=== PATIENT | female | born 1995 | race Two or more races ===

== ENCOUNTER 2018-08-02 14:58 | Emergency (ER) | payer OTHER ==
[~2018-08-02] VITALS: Ht 157.5 cm; Wt 64.0 kg
[2018-08-02 15:44] LABS: BILIRUBIN,URINE NEGATIVE (NEG); CLARITY,URINE CLEAR; COLOR,URINE YELLOW; NITRITE,URINE NEGATIVE (NEG); PROTEIN,URINE NEGATIVE (NEG-TRACE)
[2018-08-02] MEDS ORDERED: ACETAMINOPHEN 325 MG TABLET. PO ONE (15:45)
[2018-08-02 15:49] LABS: BACTERIA,URINE FEW /HPF (0-FEW); RBC,URINE 0 /HPF (0-2); SQUAMOUS EPITHELIAL CELL,UR MOD /LPF
--- NOTE | 2018-08-02 16:03 | PHYS DOC ---
Adult General Chief Complaint Chief Complaint: BACK PAIN OR INJURY HPI HPI 22-year-old female presents to ER with complaints of lower back pain radiating into her right buttock x2 days. Patient denies falls or recent injury. Patient reports she is 1 para 0 with due date 01/22/19. LMP was late March she is uncertain of exact dates. Patient denies any abdominal pain or cramping, vomiting, urinary symptoms, or vaginal bleeding/discharge. Patient reports since becoming she's had intermittent nausea and her OB provided her with Zofran ODT. Patient states she did take Zofran ODT this morning denying any vomiting episodes and has had improvement in nausea. Patient denies any over -the-counter education for pain. Patient denies any ice or heat application to area. Patient reports she has not as of yet felt movement with this . 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 Review of Systems Review of Systems Constitutional: Denies fever or chills. Denies fatigue Respiratory: Denies cough or shortness of breath [] Cardiovascular: No additional information not addressed in HPI [] GI: Denies abdominal pain/cramping/distention, vomiting, bloody stools or diarrhea. Reports since she became preg. intermittent nausea- no acute change : Denies dysuria or hematuria. Denies vaginal bleeding/discharge Musculoskeletal: Denies joint pain. Reports rt lower back into rt buttock- pain increases with repositioning and walking or palp. of area. Integument: Denies rash,, swelling or skin lesions [] Neurologic: Denies headache, focal weakness or sensory changes [] Endocrine: Denies polyuria or polydipsia [] All other systems were reviewed and found to be within normal limits, except as documented in this note. Current Medications Current Medications Current Medications Medications (Trade) Dose Ordered Sig/Leeroy Start Time Stop Time Status Last Admin Dose Admin Acetaminophen (Tylenol) 650 mg 1X ONCE 08/02/18 15:45 08/02/18 15:57 DC 08/02/18 16:00 650 MG Allergies Allergies Allergies Coded Allergies Type Severity Reaction Last Updated Verified No Known Drug Allergies 08/02/18 No Physical Exam Physical Exam Constitutional: Well developed, well nourished, no acute distress, non-toxic appearance. [] HENT: Normocephalic, atraumatic, oropharynx moist Eyes: Pupils equal, conjunctiva normal, no discharge. [] Neck: Normal range of motion, no tenderness, supple, no stridor. [] Cardiovascular: Heart rate regular rhythm, no murmur [] Lungs & Thorax: Bilateral breath sounds clear to auscultation. Resp. equal/ nonlabored Abdomen: Bowel sounds normal, soft- no distention/rigidity, no tenderness Skin: Warm, dry, no erythema, no rash. [] Back: Tender to palp. rt lower back- pt has facial grimacing when rt lower back/ rt mid buttock palp. pt also grimaces with repositioning, rt side CVA tenderness. No tenderness on palp. of lt lower back/mid lt buttock- no lt side CVA tenderness. Extremities: No tenderness, no cyanosis, no clubbing, ROM intact, no edema. 2+ posterior tibial bilat Neurologic: Alert and oriented X 3, normal motor function, normal sensory function, no focal deficits noted. [] Psychologic: Affect normal, judgement normal, mood normal. [] YESSY Rodriguez from OB unit came to pt's room during initial exam to obtain FHTs. 1550: YESSY Rodriguez reports FHTs 150-160s Current Patient Data Vital Signs Vital Signs Date Time Temp Pulse Resp B/P (MAP) Pulse Ox O2 Delivery O2 Flow Rate FiO2 08/02/18 15:36 98.8 94 16 125/70 (88) 99 Room Air 98.8 Lab Values Laboratory Tests Test 08/02/18 15:20 Urine Collection Type Unknown Urine Color Yellow Urine Clarity Clear Urine pH 6.0 Urine Specific Reliance 1.025 Urine Protein Negative mg/dL (NEG-TRACE) Urine Glucose (UA) Negative mg/dL (NEG) Urine Ketones (Stick) Trace mg/dL (NEG) Urine Blood Negative (NEG) Urine Nitrite Negative (NEG) Urine Bilirubin Negative (NEG) Urine Urobilinogen Dipstick 1.0 mg/dL (0.2 mg/dL) Urine Leukocyte Esterase Negative (NEG) Urine RBC 0 /HPF (0-2) Urine WBC 5-10 /HPF (0-4) Urine Squamous Epithelial Cells Mod /LPF Urine Bacteria Few /HPF (0-FEW) Urine Mucus Marked /LPF EKG EKG [] Radiology/Procedures Radiology/Procedures [] Course & Med Decision Making Course & Med Decision Making Pertinent Labs reviewed. (See chart for details) 1620: Patient was evaluated in the ER for complaints of lower back pain. Patient is 4 months with due date of 01/22/19 denying any abdominal pain or cramping, urinary symptoms, or vaginal bleeding/discharge. 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 Discussion had with patient regarding back pain during and sciatica. Patient had UA obtained with findings of trace of ketones negative blood, nitrates or [id number] 5-10 WBCs with moderate squamous. Discussed with being having 5-10 WBCs on micro-would provide prescription for Keflex. Patient denied taking any [id number] medications prior for pain as she was reluctant to take medicine during her . Discussed Tylenol as option for pain along with ice and heat compress to affected area. Patient was provided with dose of Tylenol while in the ER. Discussed patient following up with her [facility] doctor on Saturday to discuss ER visit and for reevaluation if symptoms persist. Patient had heart tones 150 to 160s. Patient had stable vital signs and was afebrile. Education provided on signs and symptoms for her to return to ER for. Patient encouraged to increase fluid intake with trace ketones on UA. Discharge instructions were discussed. Patient requested work note for today will provide with discharge paperwork. Dragon Disclaimer Dragon Disclaimer This electronic medical record was generated, in whole or in part, using a voice recognition dictation system. Departure Departure Impression: Primary Impression: Back pain during Additional Impressions: Sciatica Urinary tract infection Disposition: HOME, SELF-CARE Condition: STABLE Patient Instructions: Back Pain in , - Urinary Tract Infection, Sciatica Additional Instructions: Apply ice or heat compress to affected area every 3-4 hours for 20-30 minutes at a time avoid direct contact of ice to skin. Tylenol as directed on container for pain control as needed. Follow-up with [facility] on Saturday to discuss back pain/sciatica and for re- evaluation. Your heart tones were 150-160s while in the Emergency Department. Scripts Cephalexin (KEFLEX) 500 Mg Capsule 1 CAP PO BID, #10 CAP 0 Refills Prov: ZEN FARAH APRN 08/02/18 Problem Qualifiers ZEN FARAH APRN Aug 02, 2018 16:03
[2018-08-02] MEDS ORDERED: CEPH-264 PO (16:28)
[2018-08-02 16:39] VITALS: BP 117/70
== END 2018-08-02 16:47 | disposition home or self-care (01) ==
LOC: ER 14:58
DX: O23.42 Unspecified infection of urinary tract in pregnancy, second trimester (principal); M54.41 Lumbago with sciatica, right side; Z3A.16 16 weeks gestation of pregnancy
CPT/HCPCS: 81001; 87086; 99283